=== PATIENT | female | born 1960 | race Caucasian/White ===

== ENCOUNTER → 2018-07-17 | Outpatient (CLI) | payer BC ==
[2018-07-17 14:41] LABS: CALCIUM 8.5 mg/dL (8.4-10.2); POTASSIUM 4.3 mmol/L (3.6-5.0); TOTAL BILIRUBIN 0.5 mg/dL (0.2-1.3); TOTAL PROTEIN 7.5 g/dL (6.3-8.2)
[2018-07-17 15:38] LABS: BASO # 0.1 (0.02-0.10); EOS # 0.2 (0.04-0.40); EOS % 2.9 % (1.0-5.0); HEMATOCRIT 36.7 % (37.0-47.0); HEMOGLOBIN 11.2 g/dL (12.5-16.0); LYMPH# 1.1 (1.50-4.00); MEAN CELL VOLUME 82 fl (78-100); MEAN CORPUSCULAR HEMOGLOBIN 25 pg (27-31); MEAN CORPUSCULAR HGB CONC 31 g/dL (33-37); MEAN PLATELET VOLUME 10.9 fl (7.4-10.4); MONO # 0.7 (0.20-0.80); NEU # 3.8 (1.40-6.50); PLATELET COUNT 272 K/mm3 (130-400); RED BLOOD COUNT 4.49 M/mm3 (4.10-5.30); WHITE BLOOD COUNT 5.8 K/mm3 (4.8-10.8)
[2018-07-17 15:53] LABS: PH-URINE 5.5 (5.0 - 8.0); URINE APPEARANCE HAZY; URINE BILIRUBIN NEGATIVE (NEGATIVE); URINE COLOR YELLOW; URINE KETONE NEGATIVE (NEGATIVE); URINE NITRATE NEGATIVE (NEGATIVE); URINE PROTEIN(semi-quant) NEGATIVE (NEGATIVE); URINE UROBILINOGEN NORMAL (NORMAL)
[2018-07-17 15:54] LABS: URINE BLOOD TRACE (NEGATIVE); URINE LEUKOCYTE ESTERASE NEGATIVE (NEGATIVE)
== END ==
LOC: LAB 13:58
PROVIDERS: Nurse Practitioner
DX: R53.81 Other malaise (principal); R53.83 Other fatigue

== ENCOUNTER → 2018-12-16 | Outpatient (CLI) | payer OTHER ==
[2018-12-16 10:39] LABS: BASO # 0.1 (0.02-0.10); EOS # 0.2 (0.04-0.40); EOS % 2.7 % (1.0-5.0); HEMATOCRIT 38.8 % (37.0-47.0); HEMOGLOBIN 12.1 g/dL (12.5-16.0); LYMPH# 1.4 (1.50-4.00); MEAN CELL VOLUME 85 fl (78-100); MEAN CORPUSCULAR HEMOGLOBIN 27 pg (27-31); MEAN CORPUSCULAR HGB CONC 31 g/dL (33-37); MONO # 0.6 (0.20-0.80); NEU # 3.4 (1.40-6.50); PLATELET COUNT 258 K/mm3 (130-400); RED BLOOD COUNT 4.56 M/mm3 (4.10-5.30); RED CELL DISTRIBUTION WIDTH 15.7 % (11.5-14.5); WHITE BLOOD COUNT 5.5 K/mm3 (4.8-10.8)
[2018-12-16 11:00] LABS: ALBUMIN 4.3 g/dL (3.5-5.0); CALCIUM 9.4 mg/dL (8.4-10.2); POTASSIUM 4.7 mmol/L (3.6-5.0); TOTAL BILIRUBIN 0.4 mg/dL (0.2-1.3); TOTAL PROTEIN 8.2 g/dL (6.3-8.2)
[2018-12-16 12:53] LABS: URINE APPEARANCE CLEAR; URINE COLOR YELLOW
[2018-12-16 12:54] LABS: URINE BILIRUBIN NEGATIVE (NEGATIVE); URINE BLOOD NEGATIVE (NEGATIVE); URINE KETONE NEGATIVE (NEGATIVE); URINE LEUKOCYTE ESTERASE NEGATIVE (NEGATIVE); URINE NITRATE NEGATIVE (NEGATIVE); URINE PROTEIN(semi-quant) 1+ mg/dL (NEGATIVE); URINE UROBILINOGEN NORMAL (NORMAL); URINE WBC 0-1 /hpf (0-3)
== END ==
LOC: LAB 09:45
PROVIDERS: Nurse Practitioner
DX: M54.9 Dorsalgia, unspecified (principal); R73.9 Hyperglycemia, unspecified

== ENCOUNTER 2019-01-22 09:14 | Observation (INO) | payer OTHER ==
[~2019-01-22] VITALS: Ht 167.6 cm; Wt 60.3 kg
[2019-01-22 10:13] VITALS: BP 134/78
[2019-01-22 10:18] LABS: HEMATOCRIT 38.7 % (37.0-47.0); HEMOGLOBIN 12.2 g/dL (12.5-16.0); MEAN CELL VOLUME 86 fl (78-100); MEAN CORPUSCULAR HEMOGLOBIN 27 pg (27-31); MEAN CORPUSCULAR HGB CONC 32 g/dL (33-37); MEAN PLATELET VOLUME 10.3 fl (7.4-10.4); PLATELET COUNT 258 K/mm3 (130-400); RED BLOOD COUNT 4.51 M/mm3 (4.10-5.30); RED CELL DISTRIBUTION WIDTH 15.5 % (11.5-14.5)
[2019-01-22 10:29] LABS: LYMPHOCYTE 8 % (20-51); MONOCYTE 9 % (3-10); NEUTROPHILS 82 % (42-75)
[2019-01-22 10:30] LABS: ALBUMIN 4.2 g/dL (3.5-5.0); POTASSIUM 4.4 mmol/L (3.6-5.0); TOTAL BILIRUBIN 0.5 mg/dL (0.2-1.3); TOTAL PROTEIN 7.6 g/dL (6.3-8.2)
[2019-01-22] MEDS ORDERED: LISINOPRIL10 MG PO (10:56)
[2019-01-22] MEDS ORDERED: LANTUS PEN100 U/ML SQ (10:56)
[2019-01-22] MEDS ORDERED: LEVOTHYROXINE0.2 MG PO (10:56)
[2019-01-22] MEDS ORDERED: APIDRA100 UNIT/1 SQ (10:57)
[2019-01-22 11:39] LABS: URINE APPEARANCE CLEAR; URINE BILIRUBIN NEGATIVE (NEGATIVE); URINE BLOOD 50 ery/uL (NEGATIVE); URINE COLOR YELLOW; URINE KETONE 3+ (NEGATIVE); URINE LEUKOCYTE ESTERASE NEGATIVE (NEGATIVE); URINE NITRATE NEGATIVE (NEGATIVE); URINE PROTEIN(semi-quant) TRACE mg/dL (NEGATIVE); URINE UROBILINOGEN NORMAL (NORMAL); URINE WBC 0-1 /hpf (0-3)
[2019-01-22 13:47] LABS: CALCIUM 8.3 mg/dL (8.4-10.2); POTASSIUM 4.6 mmol/L (3.6-5.0)
[2019-01-22 18:52] LABS: ALBUMIN 2.9 g/dL (3.5-5.0); POTASSIUM 4.4 mmol/L (3.6-5.0); TOTAL BILIRUBIN 0.4 mg/dL (0.2-1.3); TOTAL PROTEIN 5.9 g/dL (6.3-8.2)
[2019-01-22 20:11] VITALS: BP 138/75
[2019-01-22 20:19] VITALS: BP 139/75
[2019-01-22 23:00] VITALS: BP 152/80
[2019-01-23 03:17] VITALS: BP 147/80
[2019-01-23 06:19] VITALS: BP 156/88
[2019-01-23 07:11] LABS: HEMATOCRIT 31.9 % (37.0-47.0); HEMOGLOBIN 10.2 g/dL (12.5-16.0); MEAN CELL VOLUME 86 fl (78-100); MEAN CORPUSCULAR HEMOGLOBIN 27 pg (27-31); MEAN CORPUSCULAR HGB CONC 32 g/dL (33-37); MEAN PLATELET VOLUME 10.3 fl (7.4-10.4); PLATELET COUNT 217 K/mm3 (130-400); RED BLOOD COUNT 3.72 M/mm3 (4.10-5.30); RED CELL DISTRIBUTION WIDTH 15.4 % (11.5-14.5); WHITE BLOOD COUNT 4.2 K/mm3 (4.8-10.8)
[2019-01-23 08:21] LABS: LYMPHOCYTE 35 % (20-51); MONOCYTE 16 % (3-10); NEUTROPHILS 46 % (42-75); NUCLEATED RED BLOOD CELL 2 (0-6)
[2019-01-23 08:23] LABS: POTASSIUM 3.8 mmol/L (3.6-5.0)
== END 2019-01-23 10:09 | disposition home or self-care (01) ==
LOC: ED 09:14 → MED/SURG 19:25
PROVIDERS: ADMIT Physician Assistant
DX: E10.65 Type 1 diabetes mellitus with hyperglycemia (principal); E10.10 Type 1 diabetes mellitus with ketoacidosis without coma; E86.0 Dehydration; I10 Essential (primary) hypertension; E03.9 Hypothyroidism, unspecified; Z79.4 Long term (current) use of insulin
CPT/HCPCS: G0378; J1815; J7030

== ENCOUNTER 2019-05-14 09:03 | Emergency (ER) | payer OTHER ==
[~2019-05-14] VITALS: Wt 60.1 kg
[~2019-05-14 09:03] MED LIST: APIDRA100 UNIT/1 SQ; LANTUS PEN100 U/ML SQ; LEVOTHYROXINE175 MCG PO; LISINOPRIL10 MG PO
[2019-05-14 09:27] LABS: URINE APPEARANCE CLEAR; URINE BILIRUBIN NEGATIVE (NEGATIVE); URINE BLOOD NEGATIVE (NEGATIVE); URINE COLOR YELLOW; URINE KETONE 1+ (NEGATIVE); URINE LEUKOCYTE ESTERASE NEGATIVE (NEGATIVE); URINE NITRATE POSITIVE (NEGATIVE); URINE PROTEIN(semi-quant) TRACE mg/dL (NEGATIVE); URINE UROBILINOGEN NORMAL (NORMAL)
[2019-05-14 09:37] LABS: EOS # 0.1 (0.04-0.40); EOS % 1.5 % (1.0-5.0); HEMATOCRIT 41.1 % (37.0-47.0); HEMOGLOBIN 13.1 g/dL (12.5-16.0); LYMPH# 2.2 (1.50-4.00); MEAN CELL VOLUME 81 fl (78-100); MEAN CORPUSCULAR HEMOGLOBIN 26 pg (27-31); MEAN CORPUSCULAR HGB CONC 32 g/dL (33-37); MEAN PLATELET VOLUME 10.4 fl (7.4-10.4); MONO # 0.8 (0.20-0.80); NEU # 3.6 (1.40-6.50); PLATELET COUNT 300 K/mm3 (130-400); RED BLOOD COUNT 5.07 M/mm3 (4.10-5.30); RED CELL DISTRIBUTION WIDTH 14.1 % (11.5-14.5); WHITE BLOOD COUNT 6.7 K/mm3 (4.8-10.8)
[2019-05-14 09:52] LABS: ALBUMIN 3.8 g/dL (3.5-5.0); POTASSIUM 4.2 mmol/L (3.5-5.1)
[2019-05-14 09:53] LABS: CALCIUM 9.7 mg/dL (8.3-10.5)
[2019-05-14 09:54] LABS: TOTAL PROTEIN 7.5 g/dL (6.4-8.3)
[2019-05-14 09:56] LABS: TOTAL BILIRUBIN 0.4 mg/dL (0.2-1.2)
[2019-05-14] MEDS ORDERED: BACTRIM DS TAB1 EACH PO (10:40)
[2019-05-14 11:29] VITALS: BP 140/82
== END 2019-05-14 11:40 | disposition home or self-care (01) ==
LOC: ED 09:03
PROVIDERS: Physician Assistant
DX: E10.65 Type 1 diabetes mellitus with hyperglycemia (principal); N39.0 Urinary tract infection, site not specified; E86.0 Dehydration; I10 Essential (primary) hypertension; E03.9 Hypothyroidism, unspecified; Z79.4 Long term (current) use of insulin
CPT/HCPCS: A4216; J0696; J1815; J7030

== ENCOUNTER 2019-06-03 15:37 | Inpatient (IN) | payer OTHER ==
[~2019-06-03] VITALS: Ht 167.6 cm; Wt 60.8 kg
[~2019-06-03 15:37] MED LIST changes: +BACTRIM DS TAB1 EACH PO
[2019-06-03 16:40] LABS: EOS # 0.2 (0.04-0.40); EOS % 2.9 % (1.0-5.0); HEMATOCRIT 32.8 % (37.0-47.0); HEMOGLOBIN 10.3 g/dL (12.5-16.0); LYMPH# 1.5 (1.50-4.00); MEAN CELL VOLUME 81 fl (78-100); MEAN CORPUSCULAR HEMOGLOBIN 26 pg (27-31); MEAN CORPUSCULAR HGB CONC 31 g/dL (33-37); MEAN PLATELET VOLUME 9.8 fl (7.4-10.4); MONO # 0.7 (0.20-0.80); NEU # 3.4 (1.40-6.50); PLATELET COUNT 228 K/mm3 (130-400); RED BLOOD COUNT 4.04 M/mm3 (4.10-5.30); RED CELL DISTRIBUTION WIDTH 14.3 % (11.5-14.5); WHITE BLOOD COUNT 5.8 K/mm3 (4.8-10.8)
[2019-06-03 16:46] LABS: ALBUMIN 3.7 g/dL (3.5-5.0); POTASSIUM 4.2 mmol/L (3.5-5.1)
[2019-06-03 16:47] LABS: CALCIUM 8.6 mg/dL (8.3-10.5)
[2019-06-03 16:49] LABS: TOTAL PROTEIN 7.3 g/dL (6.4-8.3)
[2019-06-03 16:50] LABS: TOTAL BILIRUBIN 0.2 mg/dL (0.2-1.2)
[2019-06-03 17:04] LABS: URINE APPEARANCE CLEAR; URINE BILIRUBIN NEGATIVE (NEGATIVE); URINE BLOOD NEGATIVE (NEGATIVE); URINE COLOR YELLOW; URINE GLUCOSE NEGATIVE (NEGATIVE); URINE KETONE NEGATIVE (NEGATIVE); URINE LEUKOCYTE ESTERASE 2+ (NEGATIVE); URINE NITRATE NEGATIVE (NEGATIVE); URINE PROTEIN(semi-quant) TRACE mg/dL (NEGATIVE); URINE UROBILINOGEN NORMAL (NORMAL); URINE WBC 31-50 /hpf (0-3)
[2019-06-03 17:05] LABS: URINE MUCUS PRESENT (NOT PRESENT)
[2019-06-03 18:03] VITALS: BP 157/88
[2019-06-03 18:23] VITALS: BP 145/83
[2019-06-03 18:26] VITALS: BP 145/83
[2019-06-03 23:00] VITALS: BP 132/80
[2019-06-04] VITALS (9 sets, daily range): BP systolic 145–201; BP diastolic 77–110
[2019-06-04 05:53] LABS: EOS # 0.2 (0.04-0.40); EOS % 3.6 % (1.0-5.0); HEMATOCRIT 34.9 % (37.0-47.0); HEMOGLOBIN 10.7 g/dL (12.5-16.0); LYMPH# 1.3 (1.50-4.00); MEAN CELL VOLUME 83 fl (78-100); MEAN CORPUSCULAR HEMOGLOBIN 26 pg (27-31); MEAN CORPUSCULAR HGB CONC 31 g/dL (33-37); MEAN PLATELET VOLUME 10.1 fl (7.4-10.4); MONO # 0.6 (0.20-0.80); NEU # 3.8 (1.40-6.50); PLATELET COUNT 229 K/mm3 (130-400); RED CELL DISTRIBUTION WIDTH 14.4 % (11.5-14.5); WHITE BLOOD COUNT 5.9 K/mm3 (4.8-10.8)
[2019-06-04 06:11] LABS: POTASSIUM 4.4 mmol/L (3.5-5.1)
[2019-06-04 06:12] LABS: CALCIUM 8.2 mg/dL (8.3-10.5)
[2019-06-05 03:17] VITALS: BP 169/89
[2019-06-05 06:14] VITALS: BP 183/97
[2019-06-05 06:43] LABS: EOS # 0.2 (0.04-0.40); EOS % 4.4 % (1.0-5.0); HEMATOCRIT 36.8 % (37.0-47.0); HEMOGLOBIN 11.5 g/dL (12.5-16.0); LYMPH# 1.3 (1.50-4.00); MEAN CELL VOLUME 83 fl (78-100); MEAN CORPUSCULAR HEMOGLOBIN 26 pg (27-31); MEAN CORPUSCULAR HGB CONC 31 g/dL (33-37); MEAN PLATELET VOLUME 10.4 fl (7.4-10.4); MONO # 0.7 (0.20-0.80); NEU # 3.2 (1.40-6.50); PLATELET COUNT 257 K/mm3 (130-400); RED BLOOD COUNT 4.46 M/mm3 (4.10-5.30); RED CELL DISTRIBUTION WIDTH 14.3 % (11.5-14.5); WHITE BLOOD COUNT 5.4 K/mm3 (4.8-10.8)
[2019-06-05 06:47] LABS: POTASSIUM 4.5 mmol/L (3.5-5.1)
[2019-06-05 06:48] LABS: CALCIUM 8.9 mg/dL (8.3-10.5)
[2019-06-05 10:18] LABS: URINE APPEARANCE CLEAR; URINE BILIRUBIN NEGATIVE (NEGATIVE); URINE BLOOD NEGATIVE (NEGATIVE); URINE COLOR YELLOW; URINE KETONE 1+ (NEGATIVE); URINE LEUKOCYTE ESTERASE NEGATIVE (NEGATIVE); URINE NITRATE NEGATIVE (NEGATIVE); URINE PROTEIN(semi-quant) NEGATIVE (NEGATIVE); URINE UROBILINOGEN NORMAL (NORMAL); URINE WBC 0-1 /hpf (0-3)
[2019-06-05 11:13] VITALS: BP 166/96
[2019-06-05 12:20] LABS: POTASSIUM 4.1 mmol/L (3.5-5.1)
[2019-06-05 12:21] LABS: CALCIUM 9.3 mg/dL (8.3-10.5)
[2019-06-05 14:22] LABS: POTASSIUM 4.5 mmol/L (3.5-5.1)
[2019-06-05 15:14] VITALS: BP 147/87
[2019-06-05 18:22] LABS: POTASSIUM 4.6 mmol/L (3.5-5.1)
[2019-06-05 18:23] LABS: CALCIUM 8.9 mg/dL (8.3-10.5)
[2019-06-05 18:38] VITALS: BP 135/90
[2019-06-05 22:35] LABS: POTASSIUM 4.2 mmol/L (3.5-5.1)
[2019-06-05 22:36] LABS: CALCIUM 8.5 mg/dL (8.3-10.5)
[2019-06-05 23:13] VITALS: BP 169/92
[2019-06-06 03:02] VITALS: BP 178/97
[2019-06-06 06:17] VITALS: BP 196/104
[2019-06-06 06:36] LABS: HEMATOCRIT 37.1 % (37.0-47.0); HEMOGLOBIN 11.7 g/dL (12.5-16.0); MEAN CELL VOLUME 82 fl (78-100); MEAN CORPUSCULAR HEMOGLOBIN 26 pg (27-31); MEAN CORPUSCULAR HGB CONC 32 g/dL (33-37); MEAN PLATELET VOLUME 10.2 fl (7.4-10.4); PLATELET COUNT 245 K/mm3 (130-400); RED BLOOD COUNT 4.51 M/mm3 (4.10-5.30); RED CELL DISTRIBUTION WIDTH 14.4 % (11.5-14.5); WHITE BLOOD COUNT 4.9 K/mm3 (4.8-10.8)
[2019-06-06 06:56] LABS: POTASSIUM 4.3 mmol/L (3.5-5.1)
[2019-06-06 06:57] LABS: CALCIUM 8.9 mg/dL (8.3-10.5)
[2019-06-06 07:14] LABS: LYMPHOCYTE 36 % (20-51); MONOCYTE 11 % (3-10); NEUTROPHILS 45 % (42-75)
[2019-06-06 09:59] VITALS: BP 154/84
[2019-06-06] MEDS ORDERED: LISINOPRIL20 MG PO (10:20)
[2019-06-06] MEDS ORDERED: LOPRESSOR 225 MG/TAB PO (10:20)
[2019-06-06] MEDS ORDERED: LEVOTHYROXINE0.05 MG PO (10:21)
[2019-06-06] MEDS ORDERED: CIPRO500 M1 PO (10:22)
== END 2019-06-06 10:50 | disposition home or self-care (01) | DRG 689 ==
LOC: ED 15:37 → MED/SURG 17:25
PROVIDERS: Nurse Practitioner Primary Care; Physician Assistant; ADMIT Nurse Practitioner Family
DX: N39.0 Urinary tract infection, site not specified (principal); E10.10 Type 1 diabetes mellitus with ketoacidosis without coma; E10.649 Type 1 diabetes mellitus with hypoglycemia without coma; E03.9 Hypothyroidism, unspecified; I10 Essential (primary) hypertension; B96.20 Unspecified Escherichia coli [E. coli] as the cause of diseases classified elsewhere
CPT/HCPCS: J0744; J1815; J3480; J7030

== ENCOUNTER → 2020-04-28 | Outpatient (CLI) | payer OTHER ==
[~2020-04-28] MED LIST changes: +CIPRO500 M1 PO; +LEVOTHYROXINE0.05 MG PO; +LISINOPRIL20 MG PO; +LOPRESSOR 225 MG/TAB PO
[2020-04-28 09:22] LABS: HEMATOCRIT 38.7 % (37.0-47.0); HEMOGLOBIN 12.1 g/dL (12.5-16.0); MEAN CELL VOLUME 90 fl (78-100); MEAN CORPUSCULAR HEMOGLOBIN 28 pg (27-31); MEAN CORPUSCULAR HGB CONC 31 g/dL (33-37); MEAN PLATELET VOLUME 9.9 fl (7.4-10.4); PLATELET COUNT 374 K/mm3 (130-400); RED BLOOD COUNT 4.31 M/mm3 (4.10-5.30); RED CELL DISTRIBUTION WIDTH 14.2 % (11.5-14.5); WHITE BLOOD COUNT 5.9 K/mm3 (4.8-10.8)
[2020-04-28 09:39] LABS: ALBUMIN 3.8 g/dL (3.5-5.0); POTASSIUM 4.8 mmol/L (3.5-5.1)
[2020-04-28 09:40] LABS: CALCIUM 9.4 mg/dL (8.3-10.5)
[2020-04-28 09:44] LABS: TOTAL BILIRUBIN 0.3 mg/dL (0.2-1.2)
[2020-04-28 10:47] LABS: LYMPHOCYTE 31 % (20-51); MONOCYTE 13 % (3-10); NEUTROPHILS 54 % (42-75)
== END ==
LOC: LAB 09:02
PROVIDERS: Physician Assistant
DX: U07.1 COVID-19 (principal); E11.9 Type 2 diabetes mellitus without complications; I10 Essential (primary) hypertension; E03.9 Hypothyroidism, unspecified; R79.89 Other specified abnormal findings of blood chemistry

== ENCOUNTER → 2020-06-03 | Outpatient (CLI) | payer OTHER ==
[2020-06-11 07:47] LABS: AFFIRM VAGINITIS PANEL RESULTS AMS
== END ==
LOC: LAB 14:21
PROVIDERS: Physician Assistant
DX: N89.8 Other specified noninflammatory disorders of vagina (principal); Z20.2 Contact with and (suspected) exposure to infections with a predominantly sexual mode of transmission

== ENCOUNTER → 2024-05-06 | Outpatient (CLI) | payer MEDICAID ==
[2024-05-06 09:16] LABS: BASO # 0.02 K/mm3 (0.02-0.10); EOS # 0.09 K/mm3 (0.04-0.40); EOS % 0.8 % (1.0-5.0); HEMATOCRIT 45.6 % (37.0-47.0); HEMOGLOBIN 14.6 g/dL (12.5-16.0); LYMPH# 1.05 K/mm3 (1.50-4.00); MEAN CELL VOLUME 88 fl (78-100); MEAN CORPUSCULAR HEMOGLOBIN 28 pg (27-31); MEAN CORPUSCULAR HGB CONC 32 g/dL (33-37); MEAN PLATELET VOLUME 11.4 fl (7.4-10.4); MONO # 0.66 K/mm3 (0.20-0.80); NEU # 9.11 K/mm3 (1.40-6.50); RED CELL DISTRIBUTION WIDTH 12.4 % (11.5-14.5)
[2024-05-06 09:32] LABS: ALBUMIN 4.4 g/dL (3.4-4.8)
[2024-05-06 09:33] LABS: CALCIUM 10.8 mg/dL (8.3-10.5)
[2024-05-06 09:35] LABS: TOTAL PROTEIN 8.3 g/dL (6.2-8.1)
[2024-05-06 09:37] LABS: TOTAL BILIRUBIN 0.7 mg/dL (0.2-1.2)
[2024-05-06 10:08] LABS: PLATELET COUNT 60 K/mm3 (130-400)
== END ==
LOC: LAB 08:47
PROVIDERS: Physician Assistant Medical
DX: E11.9 Type 2 diabetes mellitus without complications (principal); E03.9 Hypothyroidism, unspecified; K90.9 Intestinal malabsorption, unspecified; E78.5 Hyperlipidemia, unspecified

== ENCOUNTER 2024-08-07 10:12 | Outpatient (RCR) | payer OTHER | END 2024-08-14 | disposition home or self-care (01) | LOC: PT | DX: R41.3 Other amnesia (principal) ==